=== PATIENT | male | born 1995 | race Caucasian/White ===

== ENCOUNTER 2019-04-30 13:26 | Emergency (ER) | payer SELFPAY ==
[~2019-04-30] VITALS: Ht 185.4 cm; Wt 127.0 kg
[2019-04-30] MEDS ORDERED: IBUPROFEN 600MG TABLET PO ONE (15:45)
[2019-04-30 16:13] LABS: BASOPHILS % 0.9 % (0.0-2.0); EOSINOPHILS % 0.9 % (0.0-5.0); HEMATOCRIT. 44.9 % (42.0-52.0); LYMPHOCYTES % 38.3 % (20.0-50.0); MEAN CORPUSCULAR HEMOGLOBIN 32.7 pg (28.0-32.0); MEAN CORPUSCULAR VOLUME 91.9 fL (80.0-94.0); MEAN PLATELET VOLUME 9.5 fl (7.4-10.4); NEUTROPHILS % 51.9 % (40.0-76.0); PLATELET 220 x1000/uL (130-400); RED BLOOD CELL COUNT 4.89 mill/uL (4.7-6.1); RED CELL DISTRIBUTION WIDTH 12.6 % (11.6-14.6)
[2019-04-30 16:15] LABS: CHLORIDE 109 mEq/L (98-107)
[2019-04-30] MEDS ORDERED: IOHEXOL-300 100 ML BOTTLE ONE (17:01)
[2019-04-30 17:18] VITALS: BP 136/81
== END 2019-04-30 17:19 | disposition home or self-care (01) ==
LOC: ER 13:26
DX: K85.90 Acute pancreatitis without necrosis or infection, unspecified (principal); Z91.81 History of falling
CPT/HCPCS: 36415; 71045; 74177; 80053; 83690; 85025; 99285; Q9967

== ENCOUNTER 2019-05-01 23:36 | Emergency (ER) | payer SELFPAY ==
[~2019-05-01] VITALS: Ht 185.4 cm; Wt 127.0 kg
[2019-05-02 06:43] VITALS: BP 148/96
== END 2019-05-02 06:44 | disposition home or self-care (01) ==
LOC: ER 23:36
DX: M54.9 Dorsalgia, unspecified (principal); S39.012A Strain of muscle, fascia and tendon of lower back, initial encounter; X58.XXXA Exposure to other specified factors, initial encounter; Y93.9 Activity, unspecified; Y92.9 Unspecified place or not applicable
CPT/HCPCS: 99282

== ENCOUNTER 2020-07-15 10:23 | Emergency (ER) | payer MEDICAID ==
[~2020-07-15] VITALS: Ht 185.4 cm; Wt 127.0 kg
[2020-07-15] MEDS ORDERED: IBUPROFEN 600MG TABLET PO STA (10:43)
[2020-07-15] MEDS ORDERED: IBUP-2030 PO (11:51)
[2020-07-15 12:32] VITALS: BP 139/84
== END 2020-07-15 12:41 | disposition home or self-care (01) ==
LOC: ER 10:23
DX: S53.402A Unspecified sprain of left elbow, initial encounter (principal); X50.9XXA Other and unspecified overexertion or strenuous movements or postures, initial encounter; Y93.89 Activity, other specified; Y92.89 Other specified places as the place of occurrence of the external cause; Y99.8 Other external cause status
CPT/HCPCS: 73080; 99283

== ENCOUNTER 2021-10-04 10:34 | Emergency (ER) | payer MEDICAID, OTHER ==
[~2021-10-04] VITALS: Ht 185.4 cm; Wt 132.0 kg
[~2021-10-04 10:34] MED LIST: IBUP-2030 PO
[2021-10-04 10:53] VITALS: BP 137/86
[2021-10-04] MEDS ORDERED: IBUPROFEN 600MG TABLET PO ONE (11:00)
[2021-10-04] MEDS ORDERED: IBUP-2029 MT (11:49)
== END 2021-10-04 11:56 | disposition home or self-care (01) ==
LOC: ER 10:34
DX: R07.89 Other chest pain (principal)
CPT/HCPCS: 71045; 99283

== ENCOUNTER 2023-02-18 11:18 | Emergency (ER) | payer MEDICAID, OTHER ==
[~2023-02-18] VITALS: Ht 185.4 cm; Wt 136.0 kg
[~2023-02-18 11:18] MED LIST changes: +IBUP-2029 MT
[2023-02-18 11:32] VITALS: BP 155/93; PULSE 88; RESP 18; TEMP 98.2; O2SAT 97
[2023-02-18 15:07] LABS: BASOPHILS % 0.6 % (0.0-2.0); EOSINOPHILS % 1.3 % (0.0-5.0); HEMATOCRIT. 44.8 % (42.0-52.0); HEMOGLOBIN. 15.6 g/dL (14.0-18.0); LYMPHOCYTES % 38.7 % (20.0-50.0); MEAN CORPUSCULAR HEMOGLOBIN 32.3 pg (28.0-32.0); MEAN CORPUSCULAR HGB CONC 34.9 g/dL (31.0-37.0); MEAN CORPUSCULAR VOLUME 92.7 fL (80.0-94.0); MONOCYTES % 8.8 % (2.0-8.0); NEUTROPHILS % 50.6 % (40.0-76.0); RED BLOOD CELL COUNT 4.84 mill/uL (4.7-6.1); RED CELL DISTRIBUTION WIDTH 12.6 % (11.6-14.6); WHITE BLOOD COUNT 6.8 x1000/uL (4.5-11.0)
[2023-02-18 15:11] LABS: PROTHROMBIN TIME 10.7 sec (9.6-11.0)
[2023-02-18 15:17] LABS: ALANINE AMINOTRANSFERASE 31 IU/L (10-49); ALBUMIN 4.1 g/dL (3.2-4.8); ASPARTATE AMINOTRANSFERASE 29 IU/L (<34); BILIRUBIN TOTAL 0.8 mg/dL (0.1-1.0); CALCIUM 9.1 mg/dL (8.7-10.4); CARBON DIOXIDE 28 mEq/L (21-32); CHLORIDE 105 mEq/L (98-107); CREATININE 0.7 mg/dL (0.6-1.3); GLUCOSE 77 mg/dL (70-105); POTASSIUM 4.2 mEq/L (3.5-5.1); PROTEIN TOTAL 7.9 g/dL (6.0-8.3); SODIUM 139 mEq/L (136-145); UREA NITROGEN BLOOD 10 mg/dL (9-23)
[2023-02-18 15:38] LABS: DIFFERENTIAL COMMENT 1
[2023-02-18 16:00] LABS: MEAN PLATELET VOLUME 9.7 fl (7.4-10.4); PLATELET 220 x1000/uL (130-400)
[2023-02-18] MEDS ORDERED: HYDR453.3 TP (16:22)
[2023-02-18] MEDS ORDERED: P20 MT (16:22)
== END 2023-02-18 16:34 | disposition home or self-care (01) ==
LOC: ER 11:18
DX: D69.2 Other nonthrombocytopenic purpura (principal)
CPT/HCPCS: 36415; 80053; 85025; 99283

== ENCOUNTER 2023-04-01 19:05 | Emergency (ER) | payer MEDICAID ==
[~2023-04-01] VITALS: Ht 177.8 cm; Wt 121.0 kg
[~2023-04-01 19:05] MED LIST changes: +HYDR453.3 TP; +P20 MT
[2023-04-01 19:14] VITALS: O2SAT 97
[2023-04-01] MEDS ORDERED: SULF1TAB48 MT (20:42)
[2023-04-01] MEDS ORDERED: NAPR-681 MT (20:42)
[2023-04-01] MEDS ORDERED: AMOX1TAB16 MT (20:42)
[2023-04-01] MEDS ORDERED: TETANUS, DIPHTHERIA, PERTUSSIS VAC/PF 0.5ML (>10YR OLD) IM ONE (21:00)
[2023-04-01] MEDS: TETANUS, DIPHTHERIA, PERTUSSIS VAC/PF 0.5ML (>10YR OLD) IM ONE (22:48)
[2023-04-01] MEDS: KETOROLAC 30MG/ML VIAL IM ONE (22:49)
[2023-04-01 22:50] VITALS: BP 132/89; PULSE 76; RESP 16; TEMP 98.2
== END 2023-04-01 22:53 | disposition home or self-care (01) ==
LOC: ER 20:26
DX: S81.852A Open bite, left lower leg, initial encounter (principal); L03.116 Cellulitis of left lower limb; W55.01XA Bitten by cat, initial encounter; Y93.89 Activity, other specified; Y92.89 Other specified places as the place of occurrence of the external cause; Y99.8 Other external cause status
CPT/HCPCS: 99284; 73590; 90715; 90471; 96372; J1885

== ENCOUNTER 2023-04-06 13:38 | Emergency (ER) | payer MEDICAID, OTHER ==
[~2023-04-06] VITALS: Ht 185.4 cm; Wt 104.0 kg
[~2023-04-06 13:38] MED LIST changes: +AMOX1TAB16 MT; +NAPR-681 MT; +SULF1TAB48 MT
[2023-04-06 13:43] VITALS: BP 125/87; TEMP 98.2; O2SAT 98
[2023-04-06 13:48] VITALS: PULSE 67; RESP 16
[2023-04-06 15:24] LABS: BASOPHILS % 0.6 % (0.0-2.0); EOSINOPHILS % 4.5 % (0.0-5.0); HEMATOCRIT. 41.1 % (42.0-52.0); LYMPHOCYTES % 35.6 % (20.0-50.0); MEAN CORPUSCULAR HEMOGLOBIN 32.4 pg (28.0-32.0); MEAN CORPUSCULAR HGB CONC 34.1 g/dL (31.0-37.0); MEAN CORPUSCULAR VOLUME 95.1 fL (80.0-94.0); MEAN PLATELET VOLUME 8.6 fl (7.4-10.4); MONOCYTES % 10.8 % (2.0-8.0); NEUTROPHILS % 48.5 % (40.0-76.0); PLATELET 253 x1000/uL (130-400); RED BLOOD CELL COUNT 4.32 mill/uL (4.7-6.1); RED CELL DISTRIBUTION WIDTH 13.2 % (11.6-14.6); WHITE BLOOD COUNT 6.1 x1000/uL (4.5-11.0)
[2023-04-06 15:32] LABS: INR 0.9; PARTIAL THROMBOPLASTIN TIME 29.6 sec (23.4-31.0); PROTHROMBIN TIME 10.4 sec (9.6-11.0)
[2023-04-06 15:33] LABS: ALANINE AMINOTRANSFERASE 29 IU/L (10-49); ALBUMIN 4.3 g/dL (3.2-4.8); ASPARTATE AMINOTRANSFERASE 39 IU/L (<34); BILIRUBIN TOTAL 0.6 mg/dL (0.1-1.0); CALCIUM 8.9 mg/dL (8.7-10.4); CARBON DIOXIDE 23 mEq/L (21-32); CHLORIDE 107 mEq/L (98-107); CREATININE 0.6 mg/dL (0.6-1.3); GLUCOSE 87 mg/dL (70-105); POTASSIUM 4.1 mEq/L (3.5-5.1); PROTEIN TOTAL 7.2 g/dL (6.0-8.3); SODIUM 136 mEq/L (136-145); UREA NITROGEN BLOOD 13 mg/dL (9-23)
[2023-04-06] MEDS ORDERED: CLINDAMYCIN 600 MG in DEXTROSE 5% WATER 50 ML IV ONE (16:15)
[2023-04-06] MEDS ORDERED: CLINDAMYCIN 600MG PREMIX 50 ML IV SCH (16:30)
[2023-04-06] MEDS ORDERED: PIPERACILLIN/TAZO 3.375G/50ML 50 ML IV SCH (22:00)
[2023-04-06] MEDS ORDERED: VANCOMYCIN 1.5GM/250ML 250 ML IV NR (22:30)
== END 2023-04-07 04:51 | disposition left against medical advice (07) ==
LOC: ER 13:38 → EDBEDREQTM 16:52 → EDBEDREQ 16:52 → ER 04-07 04:51
DX: M72.6 Necrotizing fasciitis (principal); L97.921 Non-pressure chronic ulcer of unspecified part of left lower leg limited to breakdown of skin
CPT/HCPCS: 80053; 83605; 85025; 85610; 85730; 87040; 36415; 73590; 99284; Z7610 ×2; J3490; J7060

== ENCOUNTER 2023-05-20 12:32 | Emergency (ER) | payer MEDICAID, OTHER ==
[~2023-05-20] VITALS: Ht 182.9 cm; Wt 124.0 kg
[2023-05-20 12:37] VITALS: O2SAT 98
[2023-05-20 13:42] VITALS: BP 122/86; PULSE 84; RESP 20; TEMP 98.2
== END 2023-05-20 13:44 | disposition home or self-care (01) ==
LOC: ER 12:37
DX: M79.662 Pain in left lower leg (principal); Z48.00 Encounter for change or removal of nonsurgical wound dressing
CPT/HCPCS: 99281

== ENCOUNTER 2023-07-30 15:17 | Emergency (ER) | payer MEDICAID ==
[~2023-07-30] VITALS: Ht 182.9 cm; Wt 146.0 kg
[2023-07-30 15:29] VITALS: BP 130/89; PULSE 83; RESP 19; TEMP 98.7; O2SAT 99
[2023-07-31] MEDS ORDERED: DOCU-150 MT (12:49)
[2023-07-31] MEDS ORDERED: ACET-2708 MT (12:49)
[2023-07-31] MEDS ORDERED: CYCL5TAB MT (12:49)
[2023-07-31] MEDS ORDERED: DOXY100C5 MT (12:49)
[2023-07-31] MEDS ORDERED: NAPR-681 MT (12:49)
[2023-07-31] MEDS ORDERED: MUPI22OI2 TP (12:53)
== END 2023-07-30 18:25 | disposition left against medical advice (07) ==
LOC: ER 15:30
DX: M54.50 Low back pain, unspecified (principal); Z53.21 Procedure and treatment not carried out due to patient leaving prior to being seen by health care provider

== ENCOUNTER 2023-07-31 10:41 | Emergency (ER) | payer MEDICAID ==
[~2023-07-31] VITALS: Ht 182.9 cm; Wt 146.0 kg
[2023-07-31 10:43] VITALS: O2SAT 98
[2023-07-31] MEDS: LIDOCAINE 5% PATCH TOP SCH (12:16)
[2023-07-31] MEDS: CYCLOBENZAPRINE 10MG TABLET PO ONE (12:17)
[2023-07-31] MEDS: KETOROLAC 30MG/ML VIAL IM ONE (12:17)
[2023-07-31] MEDS ORDERED: ACET-2708 MT (12:49)
[2023-07-31] MEDS ORDERED: DOXY100C5 MT (12:49)
[2023-07-31] MEDS ORDERED: DOCU-150 MT (12:49)
[2023-07-31] MEDS ORDERED: CYCL5TAB MT (12:49)
[2023-07-31] MEDS ORDERED: NAPR-681 MT (12:49)
[2023-07-31] MEDS ORDERED: MUPI22OI2 TP (12:53)
[2023-07-31 13:19] VITALS: BP 138/87; PULSE 81; RESP 18; TEMP 98.4
== END 2023-07-31 13:38 | disposition home or self-care (01) ==
LOC: ER 10:41
DX: S39.012A Strain of muscle, fascia and tendon of lower back, initial encounter (principal); L98.498 Non-pressure chronic ulcer of skin of other sites with other specified severity; X58.XXXA Exposure to other specified factors, initial encounter; Y93.89 Activity, other specified; Y92.89 Other specified places as the place of occurrence of the external cause; Y99.8 Other external cause status
CPT/HCPCS: 99283; 96372; J1885